=== PATIENT | female | born 1955 | race Caucasian/White ===

== ENCOUNTER → 2018-12-11 | Outpatient (CLI) | payer OTHER ==
[~2018-12-11] MED LIST: GAMUNEX-C20 GM/200 IJ; HUMALOG100 UNIT/1 SQ; HYDROXYCHLOROQ200 M1 PO; LANTUS SUBQ; MACROBID 100 M100 M1 PO; NORCO 5-325 TA1 EACH PO; SYMBICORT80 MCG/4.1 INH; VALIUM5 MG PO; WELLBUTRIN 100100 M1 PO; ZOCOR 20 MG TAB20 M1 PO; ZYRTEC10 M2 PO
--- NOTE | 2018-12-13 17:20 | EKG ---
[address] [address] ELECTROCARDIOGRAM REPORT Name: KENYETTA SHERMAN Room #: [facility]#: [id number] ������������������ Admission: 12/11/18 ������������������ Attend Phys: Toro Weston MD Discharge: ������������������ Date of : 59 Report #: [id number] ����������������������������������������������������������������� [id number] THIS REPORT FOR: //name// [facility] Test Date: 2018-12-11 Test Time: 17:20:17 Pat Name: KENYETTA SHERMAN Department: Room: Gender: F Bow Maker: David PARRA : 1955 Requested By: Toro Weston Order Number: [id number] MD: Hugo Wolff Measurements Intervals [place]el Rate: 79 P: 69 MN: 164 QRS: 61 QRSD: 100 T: 59 QT: 385 QTc: 442 Interpretive Statements Sinus rhythm RSR' in V1 and V2, Nonspecific ST-T wave changes Compared to ECG 06/20/2013 12:29:49 no significant changes Electronically Signed On 12-13-2018 17:20:21 CDT by Hugo Wolff [email or web address] ��������������������������������������������� <ELECTRONICALLY SIGNED> ���������������������������������������� By: Hugo Wolff MD ��������������������������������������������� 12/13/181719 19 19 Hugo Wolff MD /EPI
== END ==
LOC: LAB 16:37
DX: Z01.812 Encounter for preprocedural laboratory examination (principal)

== ENCOUNTER → 2018-12-27 | Outpatient (CLI) | payer OTHER ==
[~2018-12-27] VITALS: Ht 172.7 cm; Wt 84.8 kg
[~2018-12-27] MED LIST changes: +AZELASTINE205.5 MCG/ NASAL; +CALCIUM 500 +1 EAC5 PO; +CENTRUM SILVER1 EAC4 PO; +ESTRADIOL42.5 GM VAG; -GAMUNEX-C20 GM/200 IJ; +GAMUNEX-C20 GM/200 IV; +LEVEMIR FL100 UNIT/2 SUBQ; +VENTOLIN HFA 1818 GM INH
--- NOTE | 2018-12-27 16:50 | P ---
[facility] [place] [address] PROCEDURE REPORT Name: KENYETTA SHERMAN Room #: [facility] Garcia#: [id number] Admission: 12/27/18 ������������������ Attend Phys: Jeremie Lock Discharge: ������������������ Date of : 59 Report #: [id number] THIS REPORT FOR: //name// CC: ALEJANDRO Briscoe DATE OF SERVICE: 12/27/2018 PROCEDURE PERFORMED: Colonoscopy with biopsies. HISTORY OF PRESENT ILLNESS: The patient is a 63-year-old female with a history of colon polyps, here for routine 5-year followup. In 2008, the patient had a colonoscopy, in which a large polyp was removed in the sigmoid colon at 25 cm. The area was tattooed. 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 She then had a 1-year followup colonoscopy. Previous polypectomy site was well healed. No evidence of recurrent polyp. She now reports for routine followup. Her last colonoscopy was in 2013. She denies any symptoms. DESCRIPTION OF PROCEDURE: The risks and benefits of the procedure were explained to the patient, those risks including but not limited to bleeding, perforation, the risk of sedation. She understood these risks and gave informed consent. Sedation was given using propofol per Anesthesia. Next, a digital rectal exam was initially performed, which was normal. Next, using a standard Olympus colonoscope, the scope was placed in the patient's anus and advanced under direct vision to the cecum. The overall prep was excellent. The cecum and ileocecal valve were normal in appearance. The ascending, transverse and descending colon were normal. In the distal sigmoid colon, the previous tattoo site was noted. This was well healed. Again, there was no evidence of recurrent polyp tissue, otherwise normal. In the rectum, a 4 mm sessile polyp was noted. This was removed with cold forceps. On retroflexion, no abnormalities were noted. The scope was then withdrawn and the procedure terminated. The patient tolerated the procedure well. IMPRESSION: 1. Small rectal polyp. 2. Previous polypectomy site again noted well healed. No evidence of recurrence. RECOMMENDATIONS: 1. Await biopsy results. 2. Repeat colonoscopy in [address] [address] PROCEDURE REPORT Name: KENYETTA SHERMAN Room #: [facility].#: [id number] Admission: 12/27/18 ������������������ Attend Phys: Jeremie Lock Discharge: ������������������ Date of : 59 Report #: [id number] Thank you for allowing me to participate in her care. ��������������������������������������������� <ELECTRONICALLY SIGNED> ���������������������������������������� By: Jeremie Pitts MD ��������������������������������������������� 12/27/18 [phone] Jeremie Pitts MD /nt
--- NOTE | 2018-12-30 16:06 | PATH ---
[facility] [address] [place] [address] PATHOLOGY RPT PROCEDURE Name: KENYETTA PASTOR Room #: [facility] M.R.#: [id number] ������������������ Admission: 12/27/18 ������������������ Date of : 59 Discharge: Report #: [id number] Path Case #: [id number] [facility] Accession Number: [id number] . 01 Material submitted: . rectum - RECTAL POLYP . 01 Clinical history: . Hx of polyps . 02 Diagnosis: Polyp, rectal polyp, endoscopic biopsy: - Compatible with a hyperplastic polyp. - Negative for dysplasia or malignancy. (IUV/db; 12/30/2018) LBQ/12/30/2018 . 02 Electronically signed: . Scarlet Quezada MD, Pathologist NPI- [id number] . 01 Gross description: . Received in formalin labeled "Kenyetta Pastor rectal polyp," are 2 segments of hooks soft tissue measuring 0.8 x 0.2 x 0.1 cm in aggregate dimensions and ranging from 0.3 to 0.5 cm in maximum dimension. The specimen is submitted entirely in cassette A1. (TSD; 12/27/2018) TOB/TOB . 02 Pathologist provided ICD-10: K62.1 . 02 CPT . 939928 Specimen Comment: A courtesy copy of this report has been sent to Specimen Comment: [phone], , . Specimen Comment: Report sent to ,DR POLLARD / DR HERRERA Performed at: [address], [place], [place] [id number] MD Vidal Martinez MD Phone: [phone] Performed at: [address] [id number] MD Scarlet Quezada MD Phone: [phone]
== END | disposition home or self-care (01) ==
LOC: GI 07:08
DX: Z12.11 Encounter for screening for malignant neoplasm of colon (principal); Z86.010 Personal history of colon polyps; K62.1 Rectal polyp; E11.9 Type 2 diabetes mellitus without complications; F32.9 Major depressive disorder, single episode, unspecified; E78.5 Hyperlipidemia, unspecified; Z79.4 Long term (current) use of insulin; Z96.641 Presence of right artificial hip joint; Z98.890 Other specified postprocedural states; Z98.51 Tubal ligation status; Z88.8 Allergy status to other drugs, medicaments and biological substances; Z79.899 Other long term (current) drug therapy; Z87.440 Personal history of urinary (tract) infections
CPT/HCPCS: 62110; 62900